=== PATIENT | male | born 1975 | race Two or more races ===

== ENCOUNTER 2020-11-11 04:07 | Emergency (ER) | payer OTHER ==
[~2020-11-11] VITALS: Ht 188 cm; Wt 59.0 kg
--- NOTE | 2020-11-11 04:34 | NUR ---
[facility] AND [employer] FOR ETOH/DUI C/O L SIDED ABD PAIN AND BLOOD IN STOOLS X1 WEEK. HX OF COLON CANCER NOT CURRENTLY BEING TREATED. +NASUEA -VOMITTING +CONSTIPATION. PAIN IS 5/10 AND BLOOD IN STOOL IS DESCRIBED DARK. MONITOR APPLIED AND VITAL SIGNS ASSESSED. MD AT BEDSIDE FOR EVAL AWAITING ORDERS.
[2020-11-11] MEDS ORDERED: ONDANSETRON HCL/PF 4 MG/2 ML VIAL ONE (04:40)
[2020-11-11] MEDS ORDERED: MORPHINE SULFATE INJ 4 MG/ML DISP.SYRIN ONE (04:40)
[2020-11-11 04:58] LABS: BASOPHILS # (AUTO) 0.1 K/uL (0.0-0.2); BASOPHILS % (AUTO) 1.5 % (0.0-2.0); EOSINOPHILS % (AUTO) 5.9 % (0.0-6.0); HEMATOCRIT 45 % (39-51); LYMPHOCYTES # (AUTO) 1.8 K/uL (0.8-4.8); LYMPHOCYTES % (AUTO) 27.6 % (20.0-44.0); MEAN CORPUSCULAR HGB CONC 34 g/dl (31.0-36.0); MEAN CORPUSCULAR VOLUME 96 fL (80-96); MONOCYTES # (AUTO) 0.4 K/uL (0.1-1.30); MONOCYTES % (AUTO) 6.6 % (2.0-12.0); NEUTROPHILS # (AUTO) 3.8 K/uL (1.8-8.9); NEUTROPHILS % (AUTO) 58.4 % (43.0-81.0); PLATELET COUNT (AUTO) 236 K/uL (150-450); RED BLOOD CELL COUNT(AUTO) 4.65 MIL/uL (4.5-6.0); WHITE BLOOD COUNT (AUTO) 6.5 K/uL (4.3-11.0)
[2020-11-11] MEDS ORDERED: IV NS 0.9% 1,000 ML BAG IV ONE (05:00)
[2020-11-11] MEDS ORDERED: MORPHINE SULFATE INJ 2 MG/ML DISP.SYRIN IV ONE (05:00)
[2020-11-11] MEDS ORDERED: ONDANSETRON HCL/PF 4 MG/2 ML VIAL IVP ONE (05:00)
[2020-11-11 05:07] LABS: CALCIUM, SERUM 7.9 mg/dL (8.5-10.1); CARBON DIOXIDE 25 mmol/L (21-32); CHLORIDE 108 mmol/L (98-107); CREATININE 0.7 mg/dL (0.6-1.3); GLUCOSE 77 mg/dL (74-106); POTASSIUM 3.7 mmol/L (3.5-5.1); SODIUM SERUM 144 mmol/L (136-145); UREA NITROGEN, BLOOD 13 mg/dL (7-18)
[2020-11-11] MEDS ORDERED: ONDA4TAB5 PO (05:07)
--- NOTE | 2020-11-11 05:10 | NUR ---
PT SLEEPING COMOFRTABLY IN BED BREATHING EVEN AND UNLABORED. EASILY AROUSABLE.
[2020-11-11 05:21] LABS: ALANINE AMINOTRANSFERASE 25 U/L (12-78); ALBUMIN 3.4 g/dL (3.4-5.0); ALKALINE PHOSPHATASE 30 U/L (46-116); ASPARTATE AMINOTRANSFERASE 19 U/L (15-37); BILIRUBIN,DIRECT 0.1 mg/dL (0.0-0.2); BILIRUBIN,TOTAL 0.1 mg/dL (0.2-1.0); LIPASE 142 U/L (73-393); TOTAL PROTEIN, SERUM 6.4 g/dL (6.4-8.2)
--- NOTE | 2020-11-11 06:17 | NUR ---
Patient discharged with [employer] under custody. Written and verbal after care instructions given. Patient verbalizes understanding of instruction. IV line removed.
[2020-11-11 06:18] VITALS: BP 104/66
== END 2020-11-11 06:19 ==
LOC: ER 04:09
DX: R10.9 Unspecified abdominal pain (principal); K92.2 Gastrointestinal hemorrhage, unspecified; R11.0 Nausea; F10.129 Alcohol abuse with intoxication, unspecified; F17.200 Nicotine dependence, unspecified, uncomplicated; Z60.2 Problems related to living alone; Y90.9 Presence of alcohol in blood, level not specified
CPT/HCPCS: 36415; 74176; 80048; 80076; 83605; 83690; 85025; 96361; 96374; 96375; 99284; J2270; J2405; J7030